=== PATIENT | female | born 1970 | race Caucasian/White ===

== ENCOUNTER 2023-09-17 14:22 | Emergency (ER) | payer OTHER, SELFPAY ==
[2023-09-17 14:23] VITALS: BP 178/99
[2023-09-17 15:16] VITALS: BMI 16.8
[2023-09-17 15:20] VITALS: BP 154/91
[2023-09-17 15:25] LABS: % Basophils 0.3 % (0-2); % Eosinophils 0.3 % (0-6); % Immature Granulocytes 0.4 % (0-0.5); % Monocytes 6.8 % (1.7-9.3); % Neutrophils 67.2 % (42.2-75.2); Absolute Lymphocytes 1.8 10^3/uL (1.2-3.4); Absolute Monocytes 0.5 10^3/uL (0.1-0.6); Absolute Neutrophils 4.9 10^3/uL (1.4-6.5); Hemoglobin 13.9 g/dL (12.0-16.0); Mean Corp Hgb Conc. 33.9 g/dL (33.0-37.0); Mean Corpuscular Hgb 32.6 pg (27.0-31.0); Mean Corpuscular Volume 96.2 fL (81.0-99.0); Mean Platelet Volume 8.9 fL (7.4-10.4); Nucleated Red Blood Cells % 0 %; Platelet Count 260 10^3/uL (130-400); Red Blood Cell Count 4.26 10^6/uL (4.20-5.40); Red Cell Dist. Width 12.5 % (11.5-14.5); White Blood Cell Count 7.3 10^3/uL (4.8-10.8)
[2023-09-17 15:36] LABS: INR 0.98
--- NOTE | 2023-09-17 15:37 | ED.GENMED ---
History of Present Illness
General
Chief Complaint: Breathing Problem
Source: patient
Exam Limitations: none
Time Seen by Provider: 09/17/23 15:11
Nursing documentation reviewed up to this point in time: agreed with
Travel History
Have you had any contact with someone who has COVID-19?: No
Do you have any symptoms of coronavirus? Fever > 100 degrees, chills, cough, shortness of breath, sore throat, loss of taste or smell, muscle aches, or headache?: No
History of Present Illness
History of Present Illness:
Patient to ED with complaint of fatigue, bruising , SOB, elevated BP. Symptoms started over the pst week. Denies fever/chills. Had sinus infection 1 mos ago. Placed on Augmentin by with resolution. Physicial by PCP 1 mos ago revealed slightly
elevated LFT's. Labs were repeated 1 week later and were normal. Brought self to ED for eval.
Past History
Past History
ED Past Medical History: Other (Chronic back pain, hx herniated discs)
ED Past Surgical History: Orthopedic
Social History
Alcohol: Occasional
Review of Systems
Review of Systems
Allergies reviewed?: Yes
All Other Systems: ROS reviewed and negative except as documented in HPI and ROS
Constitutional: Reports fatigue
EENT: Reports no symptoms
Respiratory: Reports trouble breathing
Cardiac: Reports no symptoms
ABD/GI: Reports no symptoms
: Reports no symptoms
Musculoskeletal: Reports no symptoms
Skin: Reports other (small bruise to left leiva, right medial knee)
Neurological: Reports weakness
Psychiatric: Reports no symptoms
Phy Exam
General Physical Exam
General Presentation: well appearing and no apparent distress
General age: appears stated age
General Skin: warm and dry
General Habitus: normal
General Mental: alert
Cardiovascular Exam
Cardiovascular Exam: regular rate/rhythm and no edema
Pulmonary Exam
Pulmonary Exam: lungs clear and no respiratory distress
Musculoskeletal Exam
Musculoskeletal Exam: full ROM and neuro vasc intact
Skin Exam
Skin Exam: normal color, warm/dry, no rash and other (small bruise to left ant anlke, right medial knee)
Psychiatric Exam
Psychiatric Exam: normal mood/affect
Scores
Heart Failure Risk
Heart Failure Risk Score: Not Applicable
Course
Orders/Labs/Results
Orders:
Orders
09/17/23 14:27
Electrocardiogram (*1) Urgent
Reason for Study: Chest Pain
EKG- Treatment ONCE
09/17/23 15:16
Complete Blood Count/With Diff Urgent
Comprehensive Metabolic Panel Urgent
PT/INR [Prothrombin Time] Urgent
TSH Reflex To Free T4 Urgent
Comment: ADD ON
09/17/23 15:36
CR Chest - 2 Views Urgent
Comment:
Reason For Exam: SOB
09/17/23 15:41
Add On- LAB Urgent
Tests Added?: TSH reflex T4
09/17/23 15:45
Justin-Aguilar Virus Ab Panel I [S] Urgent
Abnormal Lab Results
09/17/23
15:16
MCH 32.6 H pg
(27.0-31.0)
BUN 23 H mg/dl
(7-17)
09/17/23 15:16
09/17/23 15:16
Vital Signs
Initial and Last Documented VS:
Initial Vital Signs
Temp Pulse Resp BP Pulse Ox
98.3 F 73 20 178/99 99
09/17/23 14:23 09/17/23 14:23 09/17/23 14:23 09/17/23 14:23 09/17/23 14:23
Last Documented Vital Signs
Temp Pulse Resp BP Pulse Ox
98.3 F 79 16 136/83 98
09/17/23 14:23 09/17/23 16:15 09/17/23 16:15 09/17/23 16:08 09/17/23 16:15
*Radiology
Radiology exam reviewed: radiology read reviewed
*Pulse Oximetry
Patient hypoxic: no
*Critical Care Note
Total Time (30-74mins, 75-104mins- exclusive of procedures): Not Applicable
Update Note
Update Note:
Labs, CXR reviewed with patient. No concerning findings on exam. WIll discharge home with close followup with PCP. She is agreeable to plan.
ED Attending Note
-
Portions of this chart may have been created with voice recognition software.� Occasional wrong word or��sound alike� substitutions may have occurred due to the inherent limitations of voice recognition software.
Discharge Plan
Departure
Patient Disposition: Home (Routine Discharge)
Date of Disposition: 09/17/23
Time of Disposition: 17:24
Patient with high blood pressure during this ER visit?: No
Condition: Good
Covid-19: Not Applicable
Discharge Problem:
Fatigue
Instructions: Fatigue (DC)
Prescriptions:
No Action
prednisone 10 MG tablet
10 mg PO .TAPER Qty: 30 0RF
Rx Instructions:
Take 40mg daily x3days, 30mg daily x3days,
20mg daily x3days, 10mg daily x3days.
Referrals:
Alma Delia Rios, DO [Family Provider] - Tomorrow
Interventions
Interventions:
*Risk Screen - Suicide Last Done: 09/17/23 14:23
*General Assessment Last Done: 09/17/23 14:23
*Neglect/Abuse Screening Last Done: 09/17/23 14:23
ED- Fall Risk Assessment Last Done: 09/17/23 15:16
*ED COVID-19 Vaccine History Last Done: 09/17/23 15:16
ED- Cardiac Assessment Last Done: 09/17/23 15:16
ED- Pulmonary Assessment Last Done: 09/17/23 15:16
Discharge Date and Time
Print Language: OCCITAN
[2023-09-17 15:46] LABS: ALT (SGPT) 24 U/L (0-35); AST (SGOT) 25 U/L (14-36); Albumin 4.7 g/dl (3.5-5.0); Alkaline Phosphatase 52 U/L (38-126); Blood Urea Nitrogen 23 mg/dl (7-17); Calcium 9.6 mg/dl (8.4-10.2); Carbon Dioxide 27 mmol/L (22-30); Chloride 106 mmol/L (98-107); Estimated Creatinine Clearance 77 ml/min; Glucose 92 mg/dl (70-99); Potassium 3.5 mmol/L (3.5-5.1); Sodium 140 mmol/L (135-145); Total Bilirubin 0.9 mg/dl (0.2-1.3); Total Protein 7.1 g/dl (6.3-8.2); eGFR > 60.00
[2023-09-17 16:08] VITALS: BP 136/83
[2023-09-17 17:00] VITALS: BP 134/79
[2023-09-17 17:15] LABS: TSH Reflex To Free T4 1.21 uIU/ml (0.47-4.68)
[2023-09-17 17:45] VITALS: BP 135/78
[2023-09-19 17:40] LABS: EBV-EA (D) Ab IgG 27.9 U/mL (0.0-10.9); EBV-NA IgG 76.1 U/mL (0.0-21.9); EBV-VCA IgM Antibodies <10.0 U/mL (0.0-43.9)
== END 2023-09-17 17:45 | disposition home or self-care (01) ==
LOC: EMR 14:22
PROVIDERS: Nurse Practitioner; EMERGENCY PHYSICIAN Emergency Medicine; FAMILY PHYSICIAN Family Medicine
DX: R53.83 Other fatigue (principal)
CPT/HCPCS: 99285; 71046; 80053; 84443; 85025; 85610; 86663; 86664; 86665; 93005

== ENCOUNTER → 2024-01-16 10:57 | Outpatient (REF) | payer OTHER, SELFPAY | LOC: HWRAD 10:57 | PROVIDERS: ATTENDING PHYSICIAN Student in an Organized Health Care Education/Training Program; FAMILY PHYSICIAN Family Medicine | DX: R10.13 Epigastric pain (principal) | CPT/HCPCS: 76700 ==

== ENCOUNTER → 2024-02-18 09:13 | Outpatient (REF) | payer OTHER, SELFPAY | LOC: RAD 09:13 | PROVIDERS: ATTENDING PHYSICIAN Student in an Organized Health Care Education/Training Program; FAMILY PHYSICIAN Family Medicine | DX: R10.13 Epigastric pain (principal) | CPT/HCPCS: 93978 ==

== ENCOUNTER → 2024-05-06 11:00 | Outpatient (REF) | payer OTHER, SELFPAY | LOC: RCS 11:00 | PROVIDERS: ATTENDING PHYSICIAN Internal Medicine Cardiovascular Disease; FAMILY PHYSICIAN Family Medicine | DX: R06.02 Shortness of breath (principal) | CPT/HCPCS: 93306 ==